=== PATIENT | female | born 1960 | race Caucasian/White ===

== ENCOUNTER 2019-11-09 07:57 | Outpatient (CLI) | payer OTHER ==
[~2019-11-09 07:57] MED LIST: AMARANTH100 GM; ATACAND4 MG; CARDIZEM120 MG; CARDIZEM120 MG PO; COZAAR100 MG; COZAAR100 MG PO; COZAAR50 MG; FLAGYL500MG PO; GLIMEPIRIDE2 MG; GLIMEPIRIDE2 MG PO; INTESTINEX1 CA1 PO; LIPITOR20 MG; LIPITOR20 MG PO; LISINOPRIL10 MG PO; PEPCID20 MG PO; ZOFRAN4 MG PO; ZOLOFT50 MG; ZOLOFT50 MG PO
== END 2019-11-09 07:58 | disposition home or self-care (01) ==
LOC: SONOGRAMA 07:57
PROVIDERS: ATTEND Internal Medicine
DX: R10.13 Epigastric pain (principal)

== ENCOUNTER 2019-11-26 08:15 | Inpatient (IN) | payer OTHER ==
[~2019-11-26] VITALS: Ht 147.3 cm; Wt 52.6 kg
[2019-11-26] MEDS ORDERED: ASPIR 8181 MG PO (12:14)
[2019-11-26] MEDS ORDERED: DULOXETINE HCL30 MG PO (12:15)
[2019-11-26] MEDS ORDERED: LANTUS SOL100 UNIT/1 (12:15)
[2019-11-26] MEDS ORDERED: BISOPROLOL FUMAR5 MG PO (12:15)
[2019-11-26] MEDS ORDERED: ATORVASTATIN CA40 MG PO (12:16)
[2019-11-26] MEDS ORDERED: ATACAND HCT 321 EAC1 PO (12:16)
[2019-11-26] MEDS ORDERED: TRADJENTA5 MG PO (12:16)
[2019-11-26] MEDS ORDERED: PREVACID30 M1 PO (12:17)
[2019-12-04] MEDS ORDERED: ULTRACET PO (11:25)
== END 2019-12-04 12:39 | disposition home or self-care (01) | DRG 349 ==
LOC: EDSTATUS 08:15 → ADM 08:15 → SURH 12-03 08:15 → O/R 12-03 09:38 → SURH 12-03 10:45 → SURG 12-03 16:24
PROVIDERS: ADMIT Surgery; ATTEND Surgery
PROC: 0DBP7ZZ Excision of Rectum, Via Natural or Artificial Opening (ICD-10-PCS; principal; 2019-12-03 10:45)
DX: D12.8 Benign neoplasm of rectum (principal); E11.65 Type 2 diabetes mellitus with hyperglycemia; Z79.4 Long term (current) use of insulin

== ENCOUNTER → 2023-03-16 | Emergency (ER) | payer OTHER ==
[~2023-03-16] VITALS: Ht 147.3 cm; Wt 50.8 kg
[~2023-03-16] MED LIST changes: +ASPIR 8181 MG PO; +ATACAND HCT 321 EAC1 PO; +ATORVASTATIN CA40 MG PO; +BISOPROLOL FUMAR5 MG PO; +DULOXETINE HCL30 MG PO; +LANTUS SOL100 UNIT/1; +PREVACID30 M1 PO; +TRADJENTA5 MG PO; +ULTRACET PO
[2023-03-16 16:10] LABS: HEMATOCRIT 43.1 % (36.0-45.00); HEMOGLOBIN 14.1 g/dL (12.0-15.00); MEAN CELL VOLUME 86.2 fL (80.00-100.00); MEAN CORPUSCULAR HEMOGLOBIN 28.3 pg (27.00-32.0); MEAN CORPUSCULAR HGB CONC 32.8 g/dl (32.0-36.0); PLATELET COUNT 192 K/uL (150-450); RED BLOOD COUNT 4.99 M/uL (4.00-6.00); RED CELL DISTRIBUTION WIDTH 13.8 % (11.5-14.5)
[2023-03-16 16:11] LABS: URINE APPEARANCE Clear; URINE BILIRRUBIN Negative (NEGATIVE); URINE BLOOD Negative; URINE COLOR Yellow; URINE LEUKOCYTE Negative; URINE NITRATE Negative; URINE PROTEIN Negative (NEGATIVE); URINE UROBILINOGEN 0.2 E.U./dl
[2023-03-16 16:14] LABS: URINE EPITHELIAL CELLS 1.6 uL (0.0-38.8); URINE WBC 2.8 uL (0.0-23.2)
[2023-03-16 16:19] LABS: URINE BACTERIA 3.7 uL (0.0-1933); URINE GLUCOSE >=1000 MG/DL (NEGATIVE); URINE RBC 1.2 uL (0.0-20.8)
[2023-03-16 16:31] LABS: CALCIUM 9.7 mg/dL (8.5-10.1); CREATININE SERUM 0.88 mg/dL (0.55-1.02); GFR 65.11; POTASSIUM 4.09 mEq/L (3.5-5.1)
== END | disposition home or self-care (01) ==
LOC: ER 15:22
PROVIDERS: General Practice
DX: T54.91XA Toxic effect of unspecified corrosive substance, accidental (unintentional), initial encounter (principal); Y92.019 Unspecified place in single-family (private) house as the place of occurrence of the external cause; E11.65 Type 2 diabetes mellitus with hyperglycemia; Z79.4 Long term (current) use of insulin
CPT/HCPCS: 36415; 96365; 99284; J2405; J3490